=== PATIENT | male | born 1955 | race Caucasian/White ===

== ENCOUNTER 2016-09-08 21:20 | Emergency (ER) | payer MEDICAID, MEDICARE, SELFPAY ==
[~2016-09-08] VITALS: Ht 177.8 cm; Wt 89.1 kg
[2016-09-08 21:28] VITALS: BP 152/83
[2016-09-08] MEDS ORDERED: TIOT18CA INH (21:50)
[2016-09-08] MEDS ORDERED: MONT4GRA PO (21:50)
== END 2016-09-08 22:26 | disposition home or self-care (01) ==
LOC: ED 22:20
DX: L20.84 Intrinsic (allergic) eczema (principal); J45.909 Unspecified asthma, uncomplicated
CPT/HCPCS: 99283; J7512

== ENCOUNTER 2017-03-18 07:52 | Emergency (ER) | payer MEDICAID ==
[~2017-03-18] VITALS: Ht 177.8 cm; Wt 78.1 kg
[~2017-03-18 07:52] MED LIST: MONT4GRA PO; TIOT18CA INH
[2017-03-18] MEDS ORDERED: FAMOTIDINE 20 MG TABLET PO ONE (08:30)
[2017-03-18] MEDS ORDERED: DIPHENHYDRAMINE 25 MG CAPSULE PO ONE (08:30)
[2017-03-18] MEDS ORDERED: DIPHENHYDRAMINE 50 MG CAPSULE ONE (08:39)
[2017-03-18] MEDS ORDERED: FAMOTIDINE 20 MG TABLET ONE (08:39)
[2017-03-18 08:59] VITALS: BP 146/80
== END 2017-03-18 09:01 | disposition home or self-care (01) ==
LOC: ED 08:39
DX: L50.9 Urticaria, unspecified (principal); J45.909 Unspecified asthma, uncomplicated; F15.10 Other stimulant abuse, uncomplicated; F20.9 Schizophrenia, unspecified
CPT/HCPCS: 82962; 99284; J7512; Q0163

== ENCOUNTER 2020-01-08 19:14 | Emergency (ER) | payer MEDICAID ==
[~2020-01-08] VITALS: Ht 177.8 cm; Wt 89.6 kg
[2020-01-08 19:15] VITALS: BP 102/84
[2020-01-08] MEDS ORDERED: LIDOCAINE 1%-EPI 1:100K, 20ML ONE (20:22)
[2020-01-08] MEDS ORDERED: DIPH,PERTUSS(ACELL),TET VAC/PF 0.5 ML IM-VACC ONE ×2 (20:22→20:30)
[2020-01-08] MEDS ORDERED: LIDOCAINE 1%-EPI 1:100K, 20ML SQ ONE (20:30)
== END 2020-01-08 21:18 | disposition home or self-care (01) ==
LOC: ED 20:45
DX: L03.116 Cellulitis of left lower limb (principal); L02.416 Cutaneous abscess of left lower limb; F17.210 Nicotine dependence, cigarettes, uncomplicated; Z72.9 Problem related to lifestyle, unspecified; J45.909 Unspecified asthma, uncomplicated
CPT/HCPCS: 10060; 90471; 90715; 99283; 99406

== ENCOUNTER 2020-05-29 14:43 | Emergency (ER) | payer MEDICARE, MEDICAID ==
[~2020-05-29] VITALS: Ht 175.3 cm; Wt 92.4 kg
[2020-05-29] MEDS ORDERED: ALBUTEROL/IPRATROPIUM 2.5MG/0.5MG, 3 ML ONE (15:17)
--- NOTE | 2020-05-29 15:26 | NUR ---
BREAK RN: PT REPORTS HE HAS ASTHMA AND HE OVEREXERTED HIMSELF WHILE TRYING TO GET HIS CAR OUT OF THE SNOW. PT REPORTS SOB AND WEAKNESS. 100% ON PULSE OX ROOM AIR. 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 NSR NOTED. VS STABLE. PT SEEN BY DR NAJERA. CALL LIGHT IN PLACE. WILL CONTINUE TO MONITOR.
[2020-05-29] MEDS ORDERED: ALBUTEROL/IPRATROPIUM 2.5MG/0.5MG, 3 ML NPPB ONE (15:30)
--- NOTE | 2020-05-29 15:33 | NUR ---
GOGO RN: DR NAJERA HAS UPDATED PATIENT.
--- NOTE | 2020-05-29 15:43 | NUR ---
REPORT GIVEN TO COLIN FRY
[2020-05-29 15:56] VITALS: BP 114/72
== END 2020-05-29 16:14 | disposition home or self-care (01) ==
LOC: ED 15:52
DX: J45.901 Unspecified asthma with (acute) exacerbation (principal); R06.02 Shortness of breath; R07.89 Other chest pain; R06.00 Dyspnea, unspecified; R00.0 Tachycardia, unspecified
CPT/HCPCS: 71045; 93005; 94640; 99283; J7512